=== PATIENT | male | born 2000 | race Caucasian/White ===

== ENCOUNTER 2025-05-29 13:54 | Emergency (ER) | payer SELFPAY ==
[2025-05-29 13:56] VITALS: BP 158/70; PULSE 96; RESP 16; TEMP 36.5; O2SAT 100
[2025-05-29] MEDS: TETANUS,DIPHTHERIA,AC PERTUSSIS ADULT (0.5 ML) BOOSTRIX IM (14:13)
[2025-05-29] MEDS: CELLULOSE OXIDIZED 2 x 3 INCH 1 PKT XX ×2 (15:02)
[2025-05-29] MEDS: CEPHALEXIN 500 MG CAPSULE PO (15:19)
--- NOTE | 2025-05-29 16:43 | ED.WOUNDLAC ---
HPI - Wound/Laceration General Chief Complaint: Wound/Laceration Stated Complaint: I cut the end of my thumb off Time Seen by Provider: 05/29/25 14:12 History of Present Illness HPI narrative: Patient accidentally sliced the tip of his left thumb with a razor blade, was seen at urgent care and they sent him to the emergency room. Related Data Allergies Allergy/AdvReac Type Severity Reaction Status Date / Time No Known Allergies Allergy Verified 05/29/25 13:55 Review of Systems Review of Systems: All systems reviewed & are unremarkable except as noted in HPI and below Exam Narrative: EXAMINATION OF ORGAN SYSTEMS/BODY AREAS: Constitutional: Vital signs per nursing GENERAL:No acute distress, non-toxic appearing. HEAD: Normal with no signs of head trauma. EYES: EOMI, conjunctiva normal ENT: Hearing grossly intact LUNGS: Nonlabored breathing. HEART: Regular rate and rhythm ABD: Soft, nontender to palpation EXT: Normal range of motion SKIN: Small avulsion of the tip of left thumb nail, some active oozing under bulky dressing NEURO: Alert. No gross focal sensory or strength deficits. PSYCH: Normal affect Course Vital Signs Vital signs: Vital Signs Temperature 97.7 F 05/29/25 13:56 Pulse Rate 96 05/29/25 13:56 Respiratory Rate 16 05/29/25 13:56 Blood Pressure 158/70 H 05/29/25 13:56 Pulse Oximetry 100 05/29/25 13:56 Oxygen Delivery Room Air 05/29/25 13:56 Temperature 97.7 F 05/29/25 13:56 Pulse Rate 96 05/29/25 13:56 Respiratory Rate 16 05/29/25 13:56 Blood Pressure 158/70 H 05/29/25 13:56 Pulse Oximetry 100 05/29/25 13:56 Oxygen Delivery Room Air 05/29/25 13:56 [facility] MDM Narrative Medical decision making narrative: Patient accidentally sliced the tip of his left thumb with a razor blade, was seen at urgent care and they sent him to the emergency room. I removed the bulky dressing, there is still active oozing, there is not enough tissue to put together.. I did apply pressure and Surgicel, after about 10-15 minutes there is no bleeding any more. Patient then did get a little woozy, suspected vasovagal reaction, given something to drink here and feels much better. Surgicel provided in case the bleeding starts up again when he gets home. Antibiotics prophylactically given with return precautions Differential Diagnosis Differential Diagnosis: Wound to fingertip Discharge Plan Discharge Clinical Impression: Avulsion of skin Patient Disposition: Home Condition: Stable Instructions: Antibiotic Form, Skin Avulsion (ED) Additional Instructions: You may notice bleeding restart over the next few days as you are healing, if it happens, hold pressure where the bleeding is coming from, you can use the special clotting gauze, but if your bleeding does not stop or if you start noticing any swelling, redness, drainage or increasing pain, please come back to the emergency room. Patient Language: Latvian Prescriptions: New cephalexin 500 mg capsule 500 mg PO BID 5 Days Qty: 10 0RF Follow-up/Referrals: PHYSICIAN,VP RHEUMATOLOGY [Primary Care Provider, Internal Medicine]
--- OUTSIDE RECORDS SUMMARY | 2025-05-29 20:15 | XMS_ITS | Clinical Summary ---
Author Organization [facility] Address [address] [place] [address] Care Team Providers Care Elastic Assembler Name Role Phone No, Physician Primary Care Provider [phone] Allergies No known active allergies Medications ibuprofen (ADVIL,MOTRIN) 600 mg tablet Take 1 tablet (600 mg total) by mouth every 6 (six) hours as needed for pain 30 tablet 01/18/2020 Active Active Problems No known active problems Medical History Medical History Date Comments Adhd Asthma Family History Medical History Relation Name Comments No Known Problems Mother Relation Name Status Comments Mother Social History Tobacco Use Types Packs/Day Years Used Date Smoking Tobacco: Every Day Smokeless Tobacco: Never Alcohol Use Standard Drinks/Week Comments Not Currently 0 (1 standard drink = 0.6 oz pur e alcohol) Personal Safety Answer Date Recorded Have you ever been in or are you currently in a harmful physical or emotional relationship or is someone making you feel afraid or unsafe? 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 Gender Identity Not on file Sexual Orientation Not on file Last Filed Vital Signs Vital Sign Reading Time Taken Comments Blood Pressure 127/80 01/08/2024 7:30 AM CDT Pulse 91 01/08/2024 7:30 AM CDT Temperature 36.9 C (98.5 F) 01/08/2024 4:39 AM CDT Respiratory Rate 18 01/08/2024 4:39 AM CDT Oxygen Saturation 97% 01/08/2024 7:30 AM CDT Inhaled Oxygen Concentration - - Weight 54.4 kg (120 lb) 01/18/2020 3:29 PM CDT Height 172.7 cm (5' 8) 01/18/2020 3:29 PM CDT Body Mass Index 18.25 01/18/2020 3:29 PM CDT Plan of Treatment Health Maintenance Due Date Last Done Comments Depression Screening 2001 Hepatitis C Screening 2001 Regular Well Visit/Exam 18-64 2019 Pneumococcal vaccine <65 (1 of 2 - PCV) 2020 08/30/2002, 02/27/2002 DTaP/Tdap/Td Vaccine (7 - Td or Tdap) 02/02/2023 02/02/2013, 02/23/2006, 08/30/2002, Additional history exists Influenza Vaccine (#1) 2025 07/20/2010, 2008 Hepatitis B Screening Completed 2001 , 2001, 2001 Varicella Vaccines Completed 04/10/2007, 05/31/2002 HPV Vaccines Completed 12/31/2015, 02/02/2013 Care Teams Elastic Assembler Relationship Specialty Start Date End Date No, Physician PCP - General 01/18/20
--- OUTSIDE RECORDS SUMMARY | 2025-05-29 20:15 | XMS_ITS | Clinical Summary ---
Author Organization [facility] Address [address] [place] [address] Care Team Providers Care Commercial Loan Officer Name Role Phone Unavailable Primary Care Provider Unavailabl e Source Comments [facility],non-owned Affiliates and Associated Physician Practices is amultiple site organization consisting of ambulatory clinics and hospital sitesin [place], [place], [place] and [place]. This disclosure is being madepursuant to the Care Everywhere program and may not contain all information available regarding this patient. Last updated 18.[facility] Allergies No known active allergies Medications * This document contains information received from the source organization and may not represent a complete record from that organization. * Be aware that medications may not be up to date on this document. Alwaysverify current medications with the patient. albuterol HFA (PROVENTIL;VENT RODRICK;PROAIR) 108 (90 BASE) MCG/ACT inhaler Inhale 2 Puffs by mouth every 6 hours as needed. 1 Inhaler 5 05/07/2013 Active ibuprofen (MOTRIN) 400 MG tablet Take 1 Tab by mouth every 8 hours as needed for Pain 30 Tab 10/01/2016 Active amphetamine-dex troamphetamine XR 24hr (ADDERALL XR) 20 MG capsule Take 1 Cap by mouth every morning 30 Cap 12/02/2016 Active Active Problems Problem Noted Date Diagnosed Date ADHD (attention deficit hyperactivity disorder) 02/03/2010 Social History Tobacco Use Types Packs/Day Years Used Date Smoking Tobacco: Former Smokeless Tobacco: Never Alcohol Use Standard Drinks/Week Comments No 0 (1 standard drink = 0.6 oz pur e alcohol) Sex and Gender Information Value Date Recorded Sex Assigned at Not on file Legal Sex Male 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 Gender Identity Not on file Sexual Orientation Not on file Last Filed Vital Signs Vital Sign Reading Time Taken Comments Blood Pressure 110/70 10/21/2018 9:50 PM CDT Pulse 62 10/21/2018 9:50 PM CDT Temperature 36.6 C (97.9 F) 10/21/2018 9:50 PM CDT Respiratory Rate 16 10/21/2018 9:50 PM CDT Oxygen Saturation 93% 2016 12:11 AM BELLOWS TESTER Inhaled Oxygen Concentration - - Weight 53 kg (116 lb 13.5 oz) 10/21/2018 9:50 PM CDT Height 168.9 cm (5' 6.5) 10/21/2018 9:50 PM CDT Body Mass Index 18.58 10/21/2018 9:50 PM CDT Plan of Treatment Health Maintenance Due Date Last Done Comments HIV SCREENING 2016 HPV VACCINE (1 - Male 3-dose series) 2016 MENINGOCOCCAL (Group B) VACC INE SHARED DECISION-MAKING (1 of 2 - Standard) 2017 HEPATITIS C SCREENING 05/22/2019 DTAP/TDAP/TD VACCINES (1 - Tdap) 2020 HEPATITIS B VACCINE (1 of 3 - 19+ 3-dose series) 2020 DEPRESSION SCREENING 06/20/2024 COVID-19 VACCINE (1 - 2024-2 6 season) 2025 INFLUENZA VACCINE (#1) 2025 ZOSTER VACCINE (1 of 2) 2051 HIB VACCINE Aged Out No longer eligi ble based on patient's age to complete this topic MENINGOCOCCAL GROUPS A/C/Y/W VACCINE Aged Out No longer eligible b ased on patient's age to complete this topic PNEUMOCOCCAL VACCINE Aged Out No long er eligible based on patient's age to complete this topic Insurance [place] MEDICAID - [employer] [facility] [place] MEDICAID HOME STATE HEALTH PLAN
== END 2025-05-29 15:24 | disposition home or self-care (01) ==
LOC: ANHED 15:13
PROVIDERS: Emergency Provider Emergency Medicine
DX: S61.012A Laceration without foreign body of left thumb without damage to nail, initial encounter (principal); W26.8XXA Contact with other sharp object(s), not elsewhere classified, initial encounter; Z23 Encounter for immunization
CPT/HCPCS: 90471; 90715; 99283; A9270